=== PATIENT | female | born 1940 | race Caucasian/White ===

== ENCOUNTER → 2018-01-19 | Outpatient (CLI) | payer MEDICARE | LOC: CVU 14:52 | PROVIDERS: ATTEND Surgery | DX: R22.41 Localized swelling, mass and lump, right lower limb (principal); M79.89 Other specified soft tissue disorders | CPT/HCPCS: 93971 ==

== ENCOUNTER → 2020-11-14 | Outpatient (CLI) | payer MEDICARE ==
[~2020-11-14] MED LIST: ASCO100018 PO; ASPI81TA45 PO; ATEN25TA PO; ATOR10TA9 PO; CALC-126 PO; CHOL10003 PO; GLUC1CAP18 PO; IBUP-1902 PO; IPRA15SP NAS; MULT-717 PO; VIT1CAPS42 PO; VITAMIN B12 PO
[2020-11-14 12:55] LABS: BASOPHILS % (AUTO) 1 % (0-1); EOSINOPHILS % (AUTO) 3 % (1-7); LYMPHOCYTES % (AUTO) 25 % (22-44); MEAN CORPUSCULAR HEMOGLOBIN 31.3 pg (27.0-34.8); MEAN CORPUSCULAR HGB CONC 33.4 g/dL (32.4-35.8); MEAN PLATELET VOLUME 9.2 fL (7.4-10.4); MONOCYTES % (AUTO) 8 % (2-9); NEUTROPHILS % (AUTO) 63 % (42-75); PLATELET COUNT 240 x10^3/uL (130-400); RED BLOOD COUNT 4.53 x10^6/uL (3.82-5.3); RED CELL DISTRIBUTION WIDTH 13.2 % (9.6-15.2)
[2020-11-14 12:56] LABS: MD NO
[2020-11-14 13:06] LABS: ALBUMIN 3.7 g/dL (3.4-5.0); ANION GAP 4 mmol/L (5-15); CALCIUM 9.5 mg/dL (8.5-10.1); CHLORIDE 111 mmol/L (98-107)
[2020-11-14 13:10] LABS: ALANINE AMINOTRANSFERASE 32 U/L (12-78); ALKALINE PHOSPHATASE 126 U/L (45-117); BILIRUBIN,TOTAL 0.9 mg/dL (0.2-1.0); CREATININE 0.77 mg/dL (0.55-1.02); TOTAL PROTEIN 6.9 g/dL (6.4-8.2)
== END | disposition home or self-care (01) ==
LOC: STAR 10:27
PROVIDERS: ATTEND Orthopaedic Surgery
DX: Z01.810 Encounter for preprocedural cardiovascular examination (principal); Z01.818 Encounter for other preprocedural examination; M16.12 Unilateral primary osteoarthritis, left hip; M25.552 Pain in left hip; Z20.822 Contact with and (suspected) exposure to COVID-19
CPT/HCPCS: 80053; 85025; 87081; 87635; 93005

== ENCOUNTER 2020-11-20 08:16 | Observation (INO) | payer MEDICARE ==
[~2020-11-20] VITALS: Ht 160 cm; Wt 80.5 kg
[~2020-11-20 08:16] MED LIST changes: +KETOROLAC 60 MG/2 ML ONE; +ROPIvacaine/PF 0.2%, 20 ML ONE; +TRANEXAMIC ACID 100 MG/ML, 10ML ONE; +VANCOMYCIN 1,000 MG ONE
[2020-11-20 09:26] VITALS: BP 147/87
[2020-11-20] MEDS ORDERED: LACTATED RINGERS 1,000 ML IV SCH (09:30)
[2020-11-20] MEDS ORDERED: CHLORHEXIDINE 15 ML UDC MM ONE (09:30)
[2020-11-20] MEDS ORDERED: FENTANYL PF 250 MCG/5ML ONE (09:55)
[2020-11-20] MEDS ORDERED: ONDANSETRON 2MG/ML, 2ML IVPush PRN ×2 (10:00→11:00)
[2020-11-20] MEDS ORDERED: TRANEXAMIC ACID 1,000 MG in SODIUM CHLORIDE 0.9% 100 ML IVPB ONE (10:00)
[2020-11-20] MEDS ORDERED: MORPHINE SULFATE 4 MG/ML, 1ML IVPush PRN (10:00)
[2020-11-20] MEDS ORDERED: DIPHENHYDRAMINE 50 MG CAPSULE PO PRN (10:00)
[2020-11-20] MEDS ORDERED: ONDANSETRON 4 MG TABLET PO PRN (10:00)
[2020-11-20] MEDS ORDERED: DEXMEDETOMIDINE 200 MCG/2 ML ONE (10:05)
[2020-11-20] MEDS ORDERED: IBUPROFEN 200 MG TABLET PO SCH (10:30)
[2020-11-20] MEDS ORDERED: EPHEDRINE 50 MG/ML, 1ML IVPush PRN (11:00)
[2020-11-20] MEDS ORDERED: PROMETHAZINE 25 MG/ML, 1ML IVPush PRN (11:00)
[2020-11-20] MEDS ORDERED: OXYcodone 5 MG/5 ML ORAL.SOL UDC PO PRN (11:00)
[2020-11-20] MEDS ORDERED: LABETALOL 5MG/ML, 20ML IV PRN (11:00)
[2020-11-20] MEDS ORDERED: METHOCARBAMOL 1,000 MG in DEXTROSE 5% 100 ML IV PRN (11:00)
[2020-11-20] MEDS ORDERED: ACETAMINOPHEN 325 MG TABLET PO PRN (11:00)
[2020-11-20] MEDS ORDERED: METOCLOPRAMIDE 5 MG/ML, 2ML IVPush PRN (11:00)
[2020-11-20] MEDS ORDERED: hydrALAzine 20 MG/ML, 1ML IV PRN (11:00)
[2020-11-20] MEDS ORDERED: METOPROLOL 1 MG/ML, 5ML IV PRN (11:00)
[2020-11-20] MEDS ORDERED: HALOPERIDOL 5 MG/ML IV PRN (11:00)
[2020-11-20] MEDS ORDERED: DIPHENHYDRAMINE 50 MG/ML, 1ML IVPush PRN (11:00)
[2020-11-20] MEDS ORDERED: ROPIvacaine/PF 0.2%, 20 ML ONE (11:09)
[2020-11-20] MEDS ORDERED: FENTANYL PF 100 MCG/2ML ONE (12:08)
[2020-11-20] MEDS ORDERED: ACETAMINOPHEN 650 MG/20.3 ML UDC ONE (12:08)
[2020-11-20] MEDS ORDERED: OXYcodone 5 MG/5 ML ORAL.SOL UDC ONE (12:08)
[2020-11-20] MEDS: FENTANYL PF 100 MCG/2ML IV PRN ×4 (12:11→12:40)
[2020-11-20] MEDS ORDERED: HYDROmorphone 1 MG/ML, 1ML INJ ONE (12:39)
[2020-11-20] MEDS: HYDROmorphone 1 MG/ML, 1ML INJ IVPush PRN ×2 (12:44→12:56)
[2020-11-20] MEDS ORDERED: CEFAZOLIN 1,000 MG ONE (15:08)
[2020-11-20] MEDS ORDERED: ONDANSETRON 2MG/ML, 2ML ONE (15:08)
[2020-11-20] MEDS ORDERED: PROPOFOL 10 MG/ML, 20ML ONE (15:08)
[2020-11-20] MEDS ORDERED: DEXAMETHASONE 4 MG/ML, 1ML ONE (15:08)
[2020-11-20] MEDS ORDERED: SUGAMMADEX 200 MG/2 ML IVPush ONE (15:08)
[2020-11-20] MEDS ORDERED: ROCURONIUM 10MG/ML,5ML ONE (15:08)
[2020-11-20] MEDS ORDERED: PHENYLEPHRINE 10 MG/ML ONE (15:08)
[2020-11-20] MEDS: OXYcodone/APAP 5/325MG TABLET PO PRN ×2 (17:51→22:54)
[2020-11-20] MEDS: CEFAZOLIN PMX 1GM/50ML 50 ML IVPB SCH (17:51)
[2020-11-20 19:24] VITALS: BP 110/76
[2020-11-20 19:26] VITALS: BP 132/67
[2020-11-20] MEDS: DOCUSATE 100 MG CAPSULE PO SCH (20:19)
[2020-11-20] MEDS: ATENOLOL 25 MG TABLET PO SCH (20:19)
[2020-11-20] MEDS: IPRATROPIUM NASAL 0.03%, 30ML NAS SCH (22:53)
[2020-11-21 00:08] VITALS: BP 134/68
[2020-11-21] MEDS: CEFAZOLIN PMX 1GM/50ML 50 ML IVPB SCH (02:30)
[2020-11-21] MEDS: OXYcodone/APAP 5/325MG TABLET PO PRN ×2 (04:10→10:22)
[2020-11-21 04:20] VITALS: BP 129/70
[2020-11-21] MEDS ORDERED: DEXAMETHASONE 4 MG/ML, 1ML IVPush ONE (06:00)
[2020-11-21] MEDS ORDERED: ASPIRIN 81 MG TABLET EC PO SCH ×2 (06:00→18:00)
[2020-11-21 07:35] VITALS: BP 121/78
[2020-11-21] MEDS: ATENOLOL 25 MG TABLET PO SCH (08:17)
[2020-11-21] MEDS: DOCUSATE 100 MG CAPSULE PO SCH (08:18)
[2020-11-21] MEDS: IPRATROPIUM NASAL 0.03%, 30ML NAS SCH (08:18)
== END 2020-11-21 11:21 | disposition home or self-care (01) ==
LOC: OUT 08:16 → ORIP 10:00 → 4NE 17:05 → DCLOUNGE 11-21 11:11
PROVIDERS: ADMIT Orthopaedic Surgery; ATTEND Orthopaedic Surgery
DX: M16.12 Unilateral primary osteoarthritis, left hip (principal); I25.10 Atherosclerotic heart disease of native coronary artery without angina pectoris; K21.9 Gastro-esophageal reflux disease without esophagitis; Z96.642 Presence of left artificial hip joint; Z79.899 Other long term (current) drug therapy; Z96.651 Presence of right artificial knee joint; Z85.3 Personal history of malignant neoplasm of breast
CPT/HCPCS: 27130; 36415; 72170; 86850; 86900; 96365; 96366; 96375; 97161; 97530; C1713; C1776; G0378; J0690; J1100; J1170; J2370; J2405; J2704; J2795; J3010; J7120; J1885; J3370